=== PATIENT | female | born 1960 | race Caucasian/White ===

== ENCOUNTER 2025-02-03 12:05 | Outpatient (CLI) | payer OTHER ==
[~2025-02-03 12:05] MED LIST: Iopamidol 370 76% 100 ML VIAL ONE
[2025-02-03 12:44] LABS: Estimated GFR - POC 108.0
== END 2025-02-03 12:06 | disposition home or self-care (01) ==
LOC: CT 12:05
PROVIDERS: ATTEND Obstetrics & Gynecology Gynecologic Oncology
DX: C56.9 Malignant neoplasm of unspecified ovary (principal); Z92.21 Personal history of antineoplastic chemotherapy; R18.8 Other ascites
CPT/HCPCS: 36415; 71260; 74177; 82565; Q9967